=== PATIENT | female | born 1990 | race Hispanic/Latino ===

== ENCOUNTER 2018-01-27 19:45 | Emergency (ER) | payer OTHER ==
[~2018-01-27] VITALS: Ht 165.1 cm; Wt 59.0 kg
[2018-01-27] MEDS ORDERED: BACITRACIN ZINC 15 GM OINT TOP SCH (20:15)
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
[2018-01-27 21:39] VITALS: BP 139/60
== END 2018-01-27 21:00 | disposition home or self-care (01) ==
LOC: FSED 19:45
DX: S60.812A Abrasion of left wrist, initial encounter (principal); S60.811A Abrasion of right wrist, initial encounter; S50.812A Abrasion of left forearm, initial encounter; S50.811A Abrasion of right forearm, initial encounter; V43.52XA Car driver injured in collision with other type car in traffic accident, initial encounter; Y92.488 Other paved roadways as the place of occurrence of the external cause
CPT/HCPCS: 99283

== ENCOUNTER 2018-05-06 01:36 | Emergency (ER) | payer OTHER ==
[~2018-05-06] VITALS: Ht 165.1 cm; Wt 59.0 kg
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
[2018-05-06] MEDS ORDERED: IBUPROFEN 200 MG TAB PO STA (01:52)
[2018-05-06] MEDS ORDERED: HYDROCODONE/APAP 5MG-325MG TAB PO ONE (02:00)
[2018-05-06] MEDS ORDERED: CEFTRIAXONE SOD 1 GM VIAL IM ONE (02:00)
[2018-05-06] MEDS ORDERED: ONDANSETRON HCL 4 MG ORAL DISINTEGRATING TAB PO ONE (02:00)
== END 2018-05-06 02:15 | disposition home or self-care (01) ==
LOC: FSED 01:36
DX: R10.2 Pelvic and perineal pain (principal); R30.0 Dysuria; N30.01 Acute cystitis with hematuria
CPT/HCPCS: 81003; 99283